=== PATIENT | male | born 2000 | race Caucasian/White ===

== ENCOUNTER 2022-12-02 14:50 | Outpatient (CLI) | payer BC, SELFPAY ==
--- NOTE | 2022-12-02 | ECHO_ITS ---
Patient Info Name: Al Rodrigez Age: 22 years : 2000 Gender: Male Ht: 67 in Wt: 180 lbs BSA: 1.98 m2 HR: 69 bpm BP: 115 / 77 mmHg Heart Rhythm: Sinus Rhythm Technical Quality: Excellent Exam Date: 12/02/2022 3:09 PM Exam Location: [facility] Patient Status: Outpatient Admit Date: 12/02/2022 Staff Ordering Physician: Terri Garcia MD (ken/haider) Photographic Process Attendant: Shashank Ochoa RDCS Attending Provider: Terri Garcia MD (ken/haider) Referring Physician: Jose MYLES; Exam Type: CA echo doppler color flow Study Info Indications - palpatation Complete two-dimensional, color flow and Doppler transthoracic echocardiogram is performed. Summary 1. Complete two-dimensional, color flow and Doppler transthoracic echocardiogram is performed. 2. Normal 2D/Doppler echocardiogram. Left Ventricle Left ventricular chamber dimension is normal. Left ventricular systolic function is normal, estimated at 55-60%. The left ventricular diastolic function is normal. Right Ventricle Right ventricular chamber dimension is normal. Left Atria Left atrial chamber dimension is normal. Right Atria Right atrial chamber dimension is normal. Aortic Valve The aortic valve is normal. Pulmonic Valve The pulmonic valve is normal. Mitral Valve The mitral valve has normal leaflets. Tricuspid Valve The tricuspid valve leaflets are normal. Pericardium/Pleural The pericardium appears normal. Aorta The aortic root size at the sinus of Valsalva is normal. Left Ventricular Outflow Tract Name Value Normal LVOT 2D LVOT Diameter 2.0 cm LVOT Doppler LVOT Peak Gradient 5 mmHg LVOT Mean Gradient 2 mmHg LVOT VTI 24 cm LVOT VTI/AV VTI Ratio 0.8 LVOT Stroke Volume 75 ml LVOT CO 4.3 l/min LVOT CI 2.2 l/min/m2 Pulmonic Valve Name Value Normal RVOT Doppler RVOT Peak Gradient 3 mmHg PV Doppler PV Peak Gradient 4 mmHg Mitral Valve Name Value Normal MV Doppler MV Decel [place] 245 cm/s2 MV PHT 74 ms MV Area (PHT) 3.0 cm2 4.0-5.0 MV Diastolic Function MV E Peak Velocity 62 cm/s MV A Peak Velocity 37 cm/s MV E/A 1.7
== END 2022-12-02 14:51 | disposition home or self-care (01) ==
LOC: ANHCARD 14:51
PROVIDERS: PCP Internal Medicine; Visit Provider Internal Medicine
DX: R00.2 Palpitations (principal)
CPT/HCPCS: 93306

== ENCOUNTER 2023-06-03 18:23 | Emergency (ER) | payer BC, SELFPAY ==
[2023-06-03 19:10] VITALS: BP 151/91; PULSE 79; RESP 16; TEMP 36.6; O2SAT 100
--- NOTE | 2023-06-03 19:14 | ED.WOUNDLAC ---
HPI - Wound/Laceration General Chief Complaint: Wound/Laceration Stated Complaint: lac to forehead Time Seen by Provider: 06/03/23 21:34 Focused HPI: 23 y/o M reports to the ED for a laceration to his R eyebrow that occurred around 1430 today. Pt states he was breaking branches when one of them struck his eyebrow causing the lack. States a branch hit his glasses but did not go into his eye, denies foreign body sensation. Tetanus is UTD. Denies LOC. Bandage in place and bleeding controlled. GENERAL: Well-appearing, well-nourished, and in no acute distress. HEAD: Normocephalic, atraumatic. CHEST: Clear to auscultation. ?No respiratory distress. HEART: Regular rate and rhythm.? SKIN: 3cm laceration to the R eyebrow with mild oozing. No deep structures visualized. Pt able to lift eyebrows. NEURO: ?Alert and oriented x3. Patient screened in triage and initial orders placed.? ?Additional care and disposition to be based upon?diagnostic testing and treatment. History of Present Illness HPI narrative: 23 y/o M reports to the ED for a laceration to his R eyebrow that occurred around 1430 today. Pt states he was breaking branches when one of them struck his eyebrow causing the lac. States a branch hit his glasses but did not go into his eye, denies foreign body sensation in his eye. Tetanus is UTD. Denies LOC. Bandage in place and bleeding controlled. No other injuries acquired. Related Data Allergies Allergy/AdvReac Type Severity Reaction Status Date / Time latex Allergy Unknown Patient Verified 06/03/23 19:16 has never used this. Penicillins Allergy Unknown Patient Verified 06/03/23 19:16 has never taken this. Review of Systems Review of Systems: CONSTITUTIONAL: Denies fever, chills, or sweats. EYES: Denies visual changes, redness, or discharge. ENT: Denies rhinorrhea, congestion, sore throat, or otalgia. CARDIOVASCULAR: Denies chest pain, palpitations, or edema. RESPIRATORY: Denies cough or dyspnea. GASTROINTESTINAL: Denies abdominal pain, nausea, vomiting, or diarrhea. GENITOURINARY: Denies dysuria or hematuria. SKIN: See HPI MUSCULOSKELETAL: Denies back pain, joint pain, or myalgia. NEUROLOGIC: Denies headache, numbness, or weakness. PSYCHIATRIC: Denies anxiety or depression. [facility] Past Medical History Medical History Asthma Cardiac arrhythmia Eczema Hypoglycemia Knee problem Family History Family History Mother Patient's mother is in good health Father Patient's father is in good health Social History Social History Smoking status: Never smoker Alcohol intake: current Alcohol use details: social Lack of Transportation: No Lack of Food: Never True Current Housing: I Have Housing Concerned About Future Housing: No Difficulty Paying Gas/Electric Bills: No Difficulty Paying for Meds: No Currently Unemployed: No Education: High School Diploma/GED Difficulty w/ Childcare or Family Care: No Exam Narrative: GENERAL: Well-appearing, well-nourished, and in no acute distress. HEAD: Normocephalic, atraumatic. EYES: PERRLA and EOMI. ENT: Nares clear, no rhinorrhea or epistaxis. Mucous membranes moist. NECK: Supple. CHEST: Clear to auscultation. No respiratory distress. HEART: Regular rate and rhythm. No murmur heard. Normal peripheral pulses. ABDOMEN: Soft, nontender, nondistended, normal active bowel sounds. EXTREMITIES: Normal range of motion. No edema. SKIN: 3 cm jagged laceration to the left eyebrow, bleeding controlled. No deep structures or foreign bodies visualized. Patient able to lift eyebrow and close eyes tightly without limitation in range of motion. Sensation intact throughout face. NEURO: No focal deficits. Alert and oriented x3. Course Vital Signs Vital signs: Vital Signs T
[2023-06-03] MEDS: ACETAMINOPHEN 500 MG TABLET 1000 MG PO (19:16)
[2023-06-03] MEDS: LIDO 1%/EPINEPHRINE 1:100,000 20 ML VIAL 10 ML INFILTRATE (22:00)
[2023-06-03 22:32] VITALS: BP 131/78; PULSE 79; RESP 17; TEMP 36.8; O2SAT 99
== END 2023-06-03 22:35 | disposition home or self-care (01) ==
LOC: ANHED 22:33
PROVIDERS: Emergency Provider Physician Assistant; PCP Internal Medicine
DX: S01.112A Laceration without foreign body of left eyelid and periocular area, initial encounter (principal); J45.909 Unspecified asthma, uncomplicated; W22.8XXA Striking against or struck by other objects, initial encounter
CPT/HCPCS: 12013; 99282; A9270